=== PATIENT | female | born 1990 | race Caucasian/White ===

== ENCOUNTER 2018-12-20 11:39 | Emergency (ER) | payer OTHER ==
[2018-12-20 11:42] VITALS: BMI 26.7
[2018-12-20] MEDS ORDERED: BIRTH CONTROL (11:44)
[2018-12-20] MEDS ORDERED: TORADOL10 MG PO (16:23)
[2018-12-20 16:37] VITALS: BP 124/73
[2019-02-11 10:09] VITALS: BMI 29.1
== END 2018-12-20 16:38 | disposition home or self-care (01) ==
LOC: D.ER 11:39
DX: M25.461 Effusion, right knee (principal)

== ENCOUNTER → 2019-01-24 08:02 | Outpatient (CLI) | payer OTHER ==
[~2019-01-24 08:02] MED LIST: BIRTH CONTROL; TORADOL10 MG PO
== END | disposition home or self-care (01) ==
LOC: D.MRI 08:02
PROVIDERS: ATTEND Orthopaedic Surgery
DX: S83.221A Peripheral tear of medial meniscus, current injury, right knee, initial encounter (principal)

== ENCOUNTER 2019-02-11 08:25 | Day surgery (SDC) | payer OTHER ==
[2019-02-10 10:00] LABS: HEMATOCRIT 39.9 % (36.0-48.0); MCH 30.1 pg (26.0-34.0); MCHC 35.1 g/dL (31.0-37.0); MCV 85.8 fL (80.0-100.0); MEAN PLATELET VOLUME 9.2 fL (7.4-10.4); RBC 4.65 10x6/uL (4.00-5.40); RDW 12.5 % (11.5-14.5)
[~2019-02-11] VITALS: Ht 167.6 cm; Wt 81.6 kg
[2019-02-11 10:09] VITALS: BP 122/81; Ht 167.6 cm; Wt 81.6 kg
[2019-02-11 10:26] LABS: HCG URINE NEGATIVE (NEGATIVE)
[2019-02-11] MEDS ORDERED: ULTRAM50 MG PO (16:22)
[2019-02-11] MEDS ORDERED: TORADOL10 MG PO (16:22)
--- NOTE | 2019-02-12 08:25 | OP ---
PATIENT NAME: JORGE ALBERTO FOURNIER MEDICAL RECORD: [id number] :89 LOCATION:[facility] ADMISSION DATE: SURGEON: SURINDER LANDRUM DO DATE OF OPERATION: 02/11/2019 PROCEDURE PERFORMED: Right knee arthroscopy with partial synovectomy. PREOPERATIVE DIAGNOSIS: Right knee pain, probable meniscal tear. POSTOPERATIVE DIAGNOSIS: Right knee pain with synovitis. INDICATIONS: Ms. Fournier is a 28-year-old female that has had right knee pain for quite some time. She had an MRI, which had a questionable meniscal tear in the lateral meniscus. It did not appear to be clear but she did have meniscal symptoms of popping, catching, locking, and pain. She was tired of dealing with it and wanted something done. I informed her that we are going to look through the scope, and if it was in a repairable spot, we could repair it; if not, I would trim it out and then also look at the rest of her knee. She was okay with that and was okay with the risks of infection, bleeding, damage to nerves and vessels, need for further surgery, blood clots, even , continued pain. She signed the consent. SURGEON: Surinder Landrum DO DESCRIPTION OF PROCEDURE: The patient was taken to the operative suite, laid in supine position, given general anesthetic, and an LMA was placed. The right lower extremity was then prepped and draped in sterile fashion. She was given a gram of vancomycin due to PENICILLIN ALLERGY. The time-out was performed and everyone was in agreement with correct side, site, patient, and procedure. The knee was then flexed down and the lateral portal was established with a #11 blade scalpel. Once the portal was established, the trocar was entered into the knee and the camera was entered in there is severe synovitis in the suprapatellar pouch as well as medial and lateral gutters. The knee was then brought from extension to flexion and the medial compartment was entered. The medial portal was established with an 18-gauge spinal needle and a #11 blade scalpel. A trocar and then a probe were brought in. The meniscus was probed on the medial side and from posterior to anterior. No tears were seen. There was no damage to the articular cartilage either in the medial compartment. The ACL was then probed. There was severe synovitis surrounding the ACL. This was trimmed out with the shaver. The ACL was probed and seen to be taut and in good position. The knee was then [id number]'ed and we then probed the lateral meniscus. Again, the lateral meniscus was probed anterior to posterior and superior to inferior and there were no clear tears seen in it; however, there was some synovitis spilling over at the mid portion of the lateral meniscus and was severely inflamed. This was trimmed out as well as some of the anterior synovium in front of the lateral compartment as it was inflamed as well. The patient also had what seemed like a plica band over the medial and lateral femoral condyles, just below the patella on either side. This was trimmed out as well and any other synovium appeared to be inflamed. The suction was then turned on. Water was turned off. The portal sites were injected with 0.25% Marcaine with epinephrine, 4 mL in each, and then closed with 4-0 Monocryl in inverted interrupted fashion. Steri-Strips, Adaptic, 4 x 4, ABD, Webril, and René wrap were then placed on the knee. ADOLFO hose stocking was placed up to the knee. The patient was awakened and taken to recovery in stable condition. OPERATIVE REPORT [id number] JORGE ALBERTO FOURNIER BLOOD LOSS: Minimal. COMPLICATIONS: None. TRANSINT:[id number] Voice Confirmation ID: [id number] DOCUMENT ID: [id number] SURINDER LANDRUM DO at 0825 CC: [id number] DICTATION DATE: 02/11/19 1618 [facility]: 02/11/19 1738 [facility] 02/11/19 [facility] [address] [place] [address]
== END 2019-02-11 17:30 | disposition home or self-care (01) ==
LOC: D.OPS 08:25
PROVIDERS: Anesthesiology; ATTEND Orthopaedic Surgery
DX: M25.561 Pain in right knee (principal); M65.861 Other synovitis and tenosynovitis, right lower leg; Z01.812 Encounter for preprocedural laboratory examination